=== PATIENT | male | born 1945 | race Caucasian/White ===

== ENCOUNTER 2020-12-21 23:25 | Emergency (ER) | payer OTHER ==
[~2020-12-21] VITALS: Ht 175.3 cm; Wt 104.3 kg
[2020-12-21 23:38] VITALS: BP 173/100
--- NOTE | 2020-12-21 23:41 | NUR ---
TO LOBBY A/W BED AMBULATORY
--- NOTE | 2020-12-22 01:40 | NUR ---
PT TAKEN TO BED #7
--- NOTE | 2020-12-22 01:45 | NUR ---
COVERING PRIMARY RN FOR LUNCH RELIEF- 75 Y/O M PRESENTS TO ED WITH C/O DIZZINES X2 DAYS. +NAUSEA PER PT HAS HAD 2-3 EPISODES AND "FEELS LIKE TO WORLD IS SPINNING WHEN I CLOSE MY EYES". PT DENIES VISUAL CHANGES OF HEADACHE. BP NOTED AT 175/83. PT REQUESTING MECLIZINE AND ZOFRAN.
[2020-12-22] MEDS ORDERED: MECL-303 PO (02:13)
[2020-12-22] MEDS ORDERED: ONDA4TAB PO (02:13)
--- NOTE | 2020-12-22 02:14 | NUR ---
ERMD AT BEDSIDE.
[2020-12-22 02:17] VITALS: BP 175/83
--- NOTE | 2020-12-22 02:17 | NUR ---
Patient discharged with v/s stable. Written and verbal after care instructions given and explained. Patient alert, oriented and verbalized understanding of instructions. Ambulatory with steady gait. All questions addressed prior to discharge. ID band removed. Patient advised to follow up with PMD. Rx of ANTIVERT AND ZOFRAN given. Patient educated on indication of medication including possible reaction and side effects. Opportunity to ask questions provided and answered.
== END 2020-12-22 02:17 | disposition home or self-care (01) ==
LOC: MED 23:25
DX: H81.10 Benign paroxysmal vertigo, unspecified ear (principal); E11.9 Type 2 diabetes mellitus without complications; I10 Essential (primary) hypertension
CPT/HCPCS: 99283